=== PATIENT | male | born 1990 | race Caucasian/White ===

== ENCOUNTER 2019-01-10 14:54 | Emergency (ER) | payer BC, OTHER ==
[~2019-01-10] VITALS: Ht 167.6 cm; Wt 101.4 kg
[~2019-01-10 14:54] MED LIST: BEN25 PO; FAMO-96 PO
[2019-01-10 14:58] VITALS: BP 157/82; PULSE 93; RESP 19; Ht 167.6 cm; Wt 101.4 kg
[2019-01-10] MEDS ORDERED: DIPHENHYDRAMINE 25 MG CAP PO ONE (17:30)
[2019-01-10] MEDS ORDERED: DEXAMETHASONE 10 MG/ML 1 ML INJ IM ONE (17:30)
== END 2019-01-10 17:26 | disposition home or self-care (01) ==
LOC: FTE 14:54
DX: L50.9 Urticaria, unspecified (principal)
CPT/HCPCS: 36415; 71045; 80053; 84484; 85025; 93005; 96372; J1100; Z7502; Z7610